=== PATIENT | female | born 1990 | race Caucasian/White ===

== ENCOUNTER 2019-08-06 04:01 | Emergency (ER) | payer OTHER ==
[~2019-08-06] VITALS: Ht 172.7 cm; Wt 95.5 kg
[2019-08-06 04:07] VITALS: Ht 172.7 cm; Wt 95.5 kg
[2019-08-06] MEDS ORDERED: VALTREX1000 MG PO (04:41)
[2019-08-06 04:48] VITALS: BP 156/88
== END 2019-08-06 04:56 | disposition home or self-care (01) ==
LOC: D.ER 04:01
DX: B00.53 Herpesviral conjunctivitis (principal)

== ENCOUNTER 2020-07-29 23:54 | Emergency (ER) | payer OTHER ==
[~2020-07-29] VITALS: Ht 172.7 cm; Wt 90.9 kg
[~2020-07-29 23:54] MED LIST: VALTREX1000 MG PO
[2020-07-30 00:07] VITALS: Ht 172.7 cm; Wt 90.9 kg
[2020-07-30] MEDS ORDERED: NORCO 7.5-3251 EACH GT (00:10)
[2020-07-30 01:42] LABS: BASOPHILS 0.8 % (0-2); EOSINOPHILS 2.2 % (0-7); HEMATOCRIT 37.6 % (36.0-48.0); HEMOGLOBIN 12.5 g/dL (12-16); IMMATURE GRANULOCYTES 0.1 % (0-5); LYMPHOCYTES 21.9 % (15-50); MCH 30.9 pg (26.0-34.0); MCHC 33.2 g/dL (31.0-37.0); MCV 93.1 fL (80.0-100.0); MEAN PLATELET VOLUME 9.7 fL (7.4-10.4); MONOCYTES 6.4 % (2-11); NEUTROPHILS 68.6 % (40-80); PLATELET COUNT 384 10x3/uL (130-400); RBC 4.04 10x6/uL (4.00-5.40); RDW 12.1 % (11.5-14.5); WBC 8.6 10x3/uL (4.8-10.8)
[2020-07-30 01:46] LABS: CALC OSMOLALITY 269 mosm/kg (275-300); CALCIUM 8.7 mg/dL (8.5-10.1); CARBON DIOXIDE 27.8 mmol/L (21.0-32.0); CHLORIDE - SERUM 104 mmol/L (98-107); CREATININE - SERUM 0.8 mg/dL (0.6-1.3); GLUCOSE 100 mg/dL (74-106); POTASSIUM - SERUM 3.6 mmol/L (3.5-5.1); SODIUM 136 mmol/L (136-145); UREA NITROGEN 7 mg/dL (7-18); eGFR NON AFRICAN AMERICAN 90 mL/min (90-120)
[2020-07-30] MEDS ORDERED: ORAL ANALGESIC9 GM TOPICAL (02:56)
[2020-07-30 04:30] VITALS: BP 132/84
== END 2020-07-30 04:30 | disposition home or self-care (01) ==
LOC: D.ER 23:54
PROVIDERS: Emergency Medicine
DX: K56.41 Fecal impaction (principal)